=== PATIENT | male | born 1970 | race African-American/Black ===

== ENCOUNTER 2017-03-16 07:22 | Day surgery (SDC) | payer BC ==
[~2017-03-16 07:22] MED LIST: EPINEPHRINE INJ 1 MG/10 ML DISP.SYRIN ONE; FENTANYL CITRATE INJ/PF 100 MCG/2 ML AMPUL ONE; FLUMAZENIL INJ 0.5 MG/5 ML VIAL ONE; GLUCAGON,HUMAN RECOMB 1 MG INJ ONE; GLYCOPYRROLATE INJ 0.4 MG/2 ML VIAL ONE; NALOXONE HCL INJ/PF 0.4 MG/1 ML SDV ONE; ONDANSETRON HCL INJ/PF 4 MG/2 ML SDV ONE
[2017-03-16] MEDS: MIDAZOLAM 2 MG/2 ML INJ ONE ×3 (07:38→07:45)
--- NOTE | 2017-03-16 08:04 | PDOC DISCHARGE SUMMARY ---
Discharge Summary (SDC) - Discharge Final Diagnosis: . Dysphasia 2. Gastritis Date of Surgery: 03/16/17 Discharge Date: 03/16/17 Condition: Good Treatment or Instructions: [facility] [place] [id number] POST ENDOSCOPY DISCHARGE INSTRUCTIONS 1. Diet: Start clear liquids that a regular diet as tolerated. 2. Resume all preoperative medications. All oral anticoagulants and aspirins can be resumed 24 hours after procedure. 3. If a polypectomy was performed some bleeding per rectum may occur. This should stop within 3 days. If not, please contact the office. 4. If you had a colonoscopy you may experience some bloating and delayed return of normal bowel function for several days, your regular bowel movement pattern should resume within a week. 5. Please contact [facility] at to make an appointment with Dr. Thompson for 1 to 3 weeks following procedure. 6. If you have any questions or concerns regarding your care,treatment plan or follow up, please contact our office. Discharge Diet: As Tolerated Discharge Activity: Activity As Tolerated Home Care Assistance: None Needed Report the Following to Your Physician Immediately: Shortness of Breath, Increase in Pain, Fever over 101 Degrees
--- NOTE | 2017-03-16 08:08 | Operative Report ---
Operative Report DATE OF SURGERY: 03/16/17 PREOPERATIVE DIAGNOSIS: Dysphasia POSTOPERATIVE DIAGNOSIS: Gastritis OPERATION: Esophagogastroduodenoscopy with gastric mucosal biopsy SURGEON: ANGELINA OH ANESTHESIA: Moderate Sedation TISSUE REMOVED OR ALTERED: Biopsy gastric mucosa COMPLICATIONS: None ESTIMATED BLOOD LOSS: Scant INTRAOPERATIVE FINDINGS: See below PROCEDURE: Patient was taken to the preop area to the endoscopy suite was placed in semirecumbent position. Oral mouthpiece inserted hypopharynx anesthetized after monitoring equipment attached. Appropriate level of conscious sedation was achieved. Surgical plan surgical timeout were conducted The flexible adult upper endoscope was advanced through the oropharynx past the hypopharynx down the esophagus through the stomach into the duodenum. The procedure was well-tolerated by the patient. The duodenum was essentially unremarkable. Scope was brought back to the pylorus which was unremarkable. The stomach was free of residual food. There is mild gastritis, but no evidence of ulceration, tumor polyp or bleeding. A random biopsy of the mucosa in the region of the antrum was selected and 2 allergies gastric mucosa. Bleeding was negligible The scope was retroflexed in the body of the stomach and a good look at the GE junction from the gastric side was obtained. Was no significant hiatal hernia. Scope was back through the GE junction which revealed the Z line at 40 cm from the incisor. There was no evidence of esophagitis. Photos were taken. The scope was brought back through the rest the esophagus which was grossly unremarkable. There is no evidence of varices. Scope was brought out of the patient's oropharynx. Tolerated procedure well. There is no post procedure complications. The patient was taken to recovery in stable condition.
[2017-03-16 09:02] VITALS: BP 126/84
== END 2017-03-16 09:03 | disposition home or self-care (01) ==
LOC: END 07:22
PROVIDERS: ATTEND Surgery
PROC: 0DB68ZX Excision of Stomach, Via Natural or Artificial Opening Endoscopic, Diagnostic (ICD-10-PCS; principal; 2017-03-16 07:30)
DX: K29.50 Unspecified chronic gastritis without bleeding (principal); B96.81 Helicobacter pylori [H. pylori] as the cause of diseases classified elsewhere; R47.02 Dysphasia; I10 Essential (primary) hypertension; E11.9 Type 2 diabetes mellitus without complications; E04.1 Nontoxic single thyroid nodule; Z79.899 Other long term (current) drug therapy
CPT/HCPCS: 43239; 88342 ×2; 88305 ×2; J2250; J3010; J0171; J1610; J2310; J2405; J3490

== ENCOUNTER 2019-09-24 20:45 | Emergency (ER) | payer OTHER, BC ==
[2019-09-24 20:51] VITALS: BP 174/104
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
== END 2019-09-24 21:20 | disposition home or self-care (01) ==
LOC: ER 20:45
DX: S50.871A Other superficial bite of right forearm, initial encounter (principal); W50.3XXA Accidental bite by another person, initial encounter; Y93.89 Activity, other specified; Y92.149 Unspecified place in prison as the place of occurrence of the external cause; Y99.0 Civilian activity done for income or pay; I10 Essential (primary) hypertension
CPT/HCPCS: 99283